=== PATIENT | male | born 1995 | race Caucasian/White ===

== ENCOUNTER 2023-10-03 02:54 | Emergency (ER) | payer SELFPAY ==
[~2023-10-03] VITALS: Ht 177.8 cm; Wt 39.5 kg
[2023-10-03] MEDS ORDERED: Sulfamethoxazole/Trimethoprim 800-160 MG TAB PO ONE (03:30)
[2023-10-03] MEDS ORDERED: BACTRIM DS TAB1 EACH PO (03:36)
[2023-10-03] MEDS ORDERED: MORGIDOX 1X100100 MG PO (03:54)
[2023-10-03 04:11] VITALS: BP 134/94
[2023-10-03 04:12] LABS: URINE APPEARANCE CLEAR (CLEAR); URINE COLOR YELLOW (YELLOW)
[2023-10-03 04:13] LABS: URINE BILIRUBIN NEGATIVE (NEGATIVE); URINE BLOOD 1+ (NEGATIVE); URINE GLUCOSE NEGATIVE (NEGATIVE); URINE KETONE NEGATIVE (NEGATIVE); URINE LEUKOCYTE ESTERASE NEGATIVE (NEGATIVE); URINE NITRATE NEGATIVE (NEGATIVE); URINE PROTEIN(semi-quant) NEGATIVE (NEGATIVE)
[2023-10-03 04:16] LABS: URINE WBC 0-1 /hpf (0-3)
== END 2023-10-03 04:13 | disposition home or self-care (01) ==
LOC: ED 02:54
PROVIDERS: Family Medicine
DX: N50.812 Left testicular pain (principal); F17.210 Nicotine dependence, cigarettes, uncomplicated; F17.290 Nicotine dependence, other tobacco product, uncomplicated